=== PATIENT | female | born 1940 | race Caucasian/White ===

== ENCOUNTER → 2018-10-12 | Outpatient (CLI) | payer MEDICARE | END | disposition home or self-care (01) | LOC: CFH 13:24 | PROVIDERS: ATTEND Specialist | DX: Z13.820 Encounter for screening for osteoporosis (principal); M85.88 Other specified disorders of bone density and structure, other site; Z92.25 Personal history of immunosuppression therapy | CPT/HCPCS: 77080 ==

== ENCOUNTER 2019-06-24 14:32 | Outpatient (CLI) | payer MEDICARE | END 2019-06-24 23:59 | disposition home or self-care (01) | LOC: CFH 14:32 | PROVIDERS: ATTEND Nurse Practitioner Primary Care | DX: I05.0 Rheumatic mitral stenosis (principal); C50.919 Malignant neoplasm of unspecified site of unspecified female breast; J45.20 Mild intermittent asthma, uncomplicated; K21.9 Gastro-esophageal reflux disease without esophagitis; Z79.52 Long term (current) use of systemic steroids; Z87.19 Personal history of other diseases of the digestive system; Z79.899 Other long term (current) drug therapy | CPT/HCPCS: 93306 ==

== ENCOUNTER 2019-09-03 10:27 | Day surgery (SDC) | payer MEDICARE ==
[~2019-09-03] VITALS: Ht 149.9 cm; Wt 54.0 kg
[2019-09-03 11:23] VITALS: BP 177/80
[2019-09-03] MEDS ORDERED: NO MEDICATIONS (11:28)
[2019-09-03] MEDS ORDERED: SODIUM CHLORIDE 0.9% 1,000 ML IV SCH (12:04)
[2019-09-03] MEDS ORDERED: FAMO10TA31 PO (12:07)
[2019-09-03] MEDS ORDERED: TOFA5TAB PO (12:07)
[2019-09-03] MEDS ORDERED: MIDAZOLAM 1 MG/ML, 2ML ONE (12:24)
[2019-09-03] MEDS ORDERED: FENTANYL PF 250 MCG/5ML ONE (12:24)
[2019-09-03] MEDS ORDERED: PROPOFOL 10 MG/ML, 20ML ONE (12:26)
[2019-09-03] MEDS ORDERED: LIDOCAINE-MPF 2% ,5ML ONE (12:26)
[2019-09-03] MEDS ORDERED: ROCURONIUM 10MG/ML,5ML ONE (12:26)
[2019-09-03] MEDS ORDERED: SUCCINYLCHOLINE 20 MG/ML, 10ML ONE (12:26)
[2019-09-03] MEDS ORDERED: LIDOCAINE 1%, 20ML ONE (12:39)
[2019-09-03] MEDS ORDERED: HYDROmorphone 2 MG/ML, 1ML IVPush PRN (14:00)
[2019-09-03] MEDS ORDERED: MIDAZOLAM 1 MG/ML, 2ML IV PRN (14:00)
[2019-09-03] MEDS ORDERED: LABETALOL 5MG/ML, 20ML IV PRN (14:00)
[2019-09-03] MEDS ORDERED: EPHEDRINE 50 MG/ML, 1ML IVPush PRN (14:00)
[2019-09-03] MEDS ORDERED: hydrALAzine 20 MG/ML, 1ML IV PRN (14:00)
[2019-09-03] MEDS ORDERED: OXYcodone 5 MG/5 ML ORAL.SOL UDC PO PRN (14:00)
[2019-09-03] MEDS ORDERED: PROMETHAZINE 12.5 MG SUPP PR PRN (14:00)
[2019-09-03] MEDS ORDERED: ONDANSETRON 2MG/ML, 2ML IV PRN (14:00)
[2019-09-03] MEDS ORDERED: DIAZEPAM 5 MG/ML, 2ML IVPush PRN (14:00)
[2019-09-03] MEDS ORDERED: PROMETHAZINE 25 MG/ML, 1ML IV PRN (14:00)
[2019-09-03] MEDS ORDERED: FENTANYL PF 100 MCG/2ML IV PRN (14:00)
[2019-09-03] MEDS ORDERED: ALBUTEROL SULFATE 2.5 MG/3 ML NPPB PRN (14:00)
[2019-09-03] MEDS ORDERED: MEPERIDINE/PF 25MG/ML,1ML IVPush PRN (14:00)
[2019-09-03] MEDS ORDERED: ONDANSETRON ODT 8 MG PO PRN (14:00)
[2019-09-03] MEDS ORDERED: HALOPERIDOL 5 MG/ML IV PRN (14:00)
[2019-09-03] MEDS ORDERED: ACETAMINOPHEN 325 MG TABLET PO PRN (14:00)
[2019-09-03] MEDS ORDERED: MEPERIDINE/PF 25MG/ML,1ML ONE (14:13)
[2019-09-03] MEDS ORDERED: CEFAZOLIN 1,000 MG ONE (15:58)
[2019-09-03] MEDS ORDERED: DEXAMETHASONE 4 MG/ML, 1ML ONE (15:58)
[2019-09-03] MEDS ORDERED: ONDANSETRON 2MG/ML, 2ML ONE (15:58)
== END 2019-09-03 17:50 | disposition home or self-care (01) ==
LOC: OUT 10:27
PROVIDERS: ATTEND Internal Medicine
DX: M48.54XA Collapsed vertebra, not elsewhere classified, thoracic region, initial encounter for fracture (principal); J45.909 Unspecified asthma, uncomplicated; M06.9 Rheumatoid arthritis, unspecified; E55.9 Vitamin D deficiency, unspecified; Z85.3 Personal history of malignant neoplasm of breast; Z79.899 Other long term (current) drug therapy
CPT/HCPCS: 22510; C1713; J0330; J0690; J1100; J2175; J2250; J2405; J2704; J3010; J7030; 22513; 22511

== ENCOUNTER → 2021-01-26 | Outpatient (CLI) | payer MEDICARE ==
[~2021-01-26] MED LIST: FAMO10TA31 PO; NO MEDICATIONS; TOFA5TAB PO
== END | disposition home or self-care (01) ==
LOC: CFH 09:20
PROVIDERS: ATTEND Internal Medicine
DX: M85.80 Other specified disorders of bone density and structure, unspecified site (principal); M81.0 Age-related osteoporosis without current pathological fracture
CPT/HCPCS: 77080